=== PATIENT | male | born 1995 | race Caucasian/White ===

== ENCOUNTER 2023-10-15 14:21 | Emergency (ER) | payer OTHER ==
[~2023-10-15] VITALS: Ht 175.3 cm; Wt 86.4 kg
[2023-10-15 14:42] VITALS: TEMP 100.5
[2023-10-15] MEDS ORDERED: NS 1,000 ML IV ONE (16:15)
[2023-10-15] MEDS ORDERED: Ketorolac 30 MG/ML VIAL IV ONE (16:15)
[2023-10-15 16:46] LABS: BASO % 0.2 % (0.0-2.0); GRAN # 17.8 K/mm3 (1.4-6.5); GRAN % 86.1 % (42.2-75.2); HEMATOCRIT 41.7 % (42.0-52.0); LYMPH # 1.3 K/mm3 (1.2-3.4); MEAN CELL VOLUME 80 fl (80.0-100.0); MEAN CORPUSCULAR HEMOGLOBIN 27 pg (27-31); MEAN CORPUSCULAR HGB CONC 34 g/dl (33.0-37.0); MONO # 1.5 K/mm3 (0.1-0.6); MONO % 7.2 % (1.7-9.3); PLATELET COUNT 283 K/mm3 (130-400); RED BLOOD COUNT 5.21 M/mm3 (4.20-5.60); REDCELL DISTRIBUTION WIDTH-CV 13.2 % (11.5-14.5)
[2023-10-15 17:06] LABS: ALBUMIN 4.3 gm/dL (3.5-5.0); BILIRUBIN,TOTAL 0.5 mg/dL (0.2-1.2); CALCIUM 9.6 mg/dL (8.4-10.2); CREATININE, serum 1.11 mg/dL (0.72-1.25); MAGNESIUM 1.5 mg/dL (1.6-2.6); POTASSIUM 4.1 mmol/L (3.5-4.5); TOTAL PROTEIN 7.3 gm/dL (6.2-8.1)
[2023-10-15 17:11] LABS: TROPONIN-I 0.011 ng/mL (0.00-0.033)
[2023-10-15 17:28] LABS: PH 5.5 (5.0-8.5); URINE APPEARANCE CLEAR (CLEAR/HAZY); URINE BLOOD NEGATIVE (NEGATIVE); URINE COLOR YELLOW (YELLOW); URINE GLUCOSE NEGATIVE (NEGATIVE); URINE KETONE NEGATIVE (NEGATIVE); URINE NITRATE NEGATIVE (NEGATIVE); URINE PROTEIN(semi-quant) NEGATIVE (NEGATIVE); URINE UROBILINOGEN 0.2 E.U/dL (0.2-1.0)
[2023-10-15 17:37] LABS: COLLECTION METHOD CLEAN CATCH
[2023-10-15] MEDS ORDERED: CLEOCIN HC150 MG/CAP PO (18:31)
[2023-10-15 18:58] VITALS: BP 110/78; PULSE 99
== END 2023-10-15 18:57 | disposition left against medical advice (07) ==
LOC: COL.ER 14:21
PROVIDERS: Internal Medicine
DX: A41.9 Sepsis, unspecified organism (principal); J69.0 Pneumonitis due to inhalation of food and vomit; D72.823 Leukemoid reaction; E86.0 Dehydration
CPT/HCPCS: J0737; J1885; J7030

== ENCOUNTER 2023-10-30 11:02 | Emergency (ER) | payer OTHER ==
[~2023-10-30] VITALS: Ht 172.7 cm; Wt 86.4 kg
[~2023-10-30 11:02] MED LIST: CLEOCIN HC150 MG/CAP PO
[2023-10-30 11:12] VITALS: TEMP 98.3
[2023-10-30] MEDS ORDERED: Albuterol/Ipratropium 3 MG-0.5 MG/3 ML Neb Soln IH ONE (12:00)
[2023-10-30 12:22] LABS: BASO % 0.5 % (0.0-2.0); EOS # 0.1 K/mm3 (0.0-0.7); GRAN # 4.4 K/mm3 (1.4-6.5); GRAN % 52.3 % (42.2-75.2); HEMATOCRIT 43.3 % (42.0-52.0); HEMOGLOBIN 14.6 g/dl (13.5-18.0); LYMPH % 36.4 % (20.0-51.0); MEAN CELL VOLUME 79 fl (80.0-100.0); MEAN CORPUSCULAR HEMOGLOBIN 27 pg (27-31); MEAN CORPUSCULAR HGB CONC 34 g/dl (33.0-37.0); MONO # 0.8 K/mm3 (0.1-0.6); MONO % 9.4 % (1.7-9.3); PLATELET COUNT 299 K/mm3 (130-400); RED BLOOD COUNT 5.45 M/mm3 (4.20-5.60); REDCELL DISTRIBUTION WIDTH-CV 13.4 % (11.5-14.5)
[2023-10-30 12:33] LABS: ALBUMIN 4.5 g/dL (3.5-5.0); BILIRUBIN,TOTAL 0.5 mg/dL (0.2-1.2); C-REACTIVE PROTEIN 3.95 mg/dL (0.00-0.50); CALCIUM 9.9 mg/dL (8.4-10.2); CREATININE, serum 1.05 mg/dL (0.72-1.25); TOTAL PROTEIN 7.9 g/dl (6.2-8.1)
[2023-10-30] MEDS ORDERED: PREDNISONE20 MG PO (13:07)
[2023-10-30] MEDS ORDERED: PROVENTIL0.09 MG/A1 IH (13:07)
[2023-10-30 13:28] VITALS: BP 126/68; PULSE 82
== END 2023-10-30 13:29 | disposition home or self-care (01) ==
LOC: COL.ER 11:02
PROVIDERS: Emergency Medicine
DX: J69.0 Pneumonitis due to inhalation of food and vomit (principal); J45.909 Unspecified asthma, uncomplicated